=== PATIENT | male | born 1940 | race Caucasian/White ===

== ENCOUNTER 2022-10-16 10:13 | Outpatient (RCR) | payer MEDICARE, OTHER, SELFPAY ==
--- NOTE | 2022-11-06 10:05 | MHC.SP.ADU ---
Referring provider: Dr. 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 Pt reports having a stroke last year. Pt reported he noticed visual deficits in his left eye and that his balance was off. He believed he lost consciousness. Pt was hospitalized 12/05/2021 to 12/10/2021, spending time in the ICU at [facility], for right temporal-occipital intraparenchymal hemorrhage. 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 Pt reports he received speech therapy during his inpatient stay before he was discharged from the hospital to his daughter?s home. He was then seen by 4 therapists for home visits for 3 weeks, and was ?working on walking and speech.? Pt reports he has had no services since this past March. Pt lives alone in a private residence. He has completed high school and ?some college.? Pt is and has three adult daughters. Pt is not currently employed, but does volunteer work 1 day per week for the [employer]. 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 Pt reports onset of cognitive difficulties after his stroke. He believes his thinking has slowed, his organizational skills have worsened, and he is experiencing some memory difficulties. Pt reportedly failed two driving evaluations and his driving license was subsequently revoked. Pt is working with a senior programmer to try to get his license back. Pt reports he has been taking the bus without difficulty. Pt was told he has beginning onset of dementia and was told he could take two medications to slow down its progression. Pt was reportedly cleared by Neurology and told he did not have to return. Pt requested a speech referral to evaluate his concerns surrounding: difficulty finding words, difficulty understanding what others are saying, and mainly concerns pertaining to memory. Medical History: Other: Per chart review, pt?s history includes hypertriglyceridemia, blood glucose abnormal, red blood cell count low, history of polyp of colon, pityriasis lichenoides, essential hypertension, dyslipidemia. Additionally, pt reports history of arthritis, skin cancer, ear infections, and hearing loss. Pt reports he wears hearing aids and glasses, does not use other assistive tools. Patient Orientation: Alert & Oriented x 4 Reported Speech, Language, Cognition difficulties: Memory, Speaking Tests of Speech & Lang Adults: BDAE BNT Clinical Impression: Impaired Observations: Patient completed the [place] Naming Test (BNT) Short Form. He was presented with images, which he was instructed to name in a confrontation naming task. Patient correctly named 11 out of 15 images independently. Patient was able to name common nouns, but exhibited difficulty naming less salient items. Patient displayed some semantic paraphasias (i.e. Labeled ?scope? for target word ?stethoscope?) and phonemic paraphasias (i.e. Labeled ?[place]? for target word ?sphinx?). Patient was not aware of his errors, but did select the correct label in 3 out of 4 trials when provided with a choice of 4 written words. Patient is also observed to compensate for word retrieval difficulty by describing each target item. For example, when patient exhibited difficulty naming an image depicting a tripod, patient stated, ?I know that one?It has three legs and it holds a camera.? Patient presents with a mild anomic aphasia, difficulty retrieving particularly less common words. Pt s observed to utilize compensatory strategies and self-cues to eventually retrieve words on his own. Patient was also administered the Auditory Comprehension, Oral Expression, Reading and Writing subtests of the [place] Diagnostic Aphasia Examination. His performance is summarized below: RECEPTIVE LANGUAGE: -Patient was instructed to identify spoken words by pointing to his response. Patient identified body parts on himself, and line images from an array of 4 correctly in 16 out of 16 trials. Responses after a short time delay (>5 sec) were scored with 1/2 point while immediate responses (<5 sec) were scored with 1 point. Patient received a score of 16/16 on this portion. -Patient followed multistep and complex directions in 3 out of 3 trials. Patient was presented with a verbal direction. Each element of the direction carried out was scored with 1 point. Patient received a score of 10 out of 10 on this task. -Patient correctly answered yes/no questions about ideational material in 4 out of 4 trials and about short stories read aloud for her in 8 out of 8 trials. Questions were presented in pairs (6 pairs), each pair consisting of a yes-item and a no-item. In order to gain 1 point, patient was to answer both questions correctly. Patient received a score of 6/6. EXPRESSIVE LANGUAGE: -Patient generated the days of the week and counted to 21 without difficulty, receiving a score of 4/4. Pt reported no difficulties with automatic speech tasks. -Patient repeated single words in 5 out of 5 trials and complete sentences in 2 out of 2 trials. Pt exhibited no difficulty with repetition. -Patient responded appropriately to responsive naming questions (i.e. ?What do you use to shave??) in 5 out of 5 trials. Items immediately named were scored as 2 points and items named after a short time delay (>5 sec) were scored as 1 point. Patient named 5 items immediately, receiving a score of 10/10. -Patient correctly named ?special categories,? which included letters, numbers, and colors in 12 out of 12 trials. READING: -Patient was able to match letters across cases and scripts, demonstrating basic symbol recognition and receiving a score of 4/4 on this task. -Patient was able to match numbers to fingers and dot patterns, receiving a score of 4/4 on this task. -Patient matched pictures to written words, demonstrating intact word identification. Patient received a score of 4/4 on this task. -Patient read aloud single words without difficulty. Patient read aloud single words within 0-3 seconds, demonstrating basic oral word reading- 15/15 score -Patient read aloud sentences correctly in 5 out of 5 trials. Patient answered comprehension questions correctly after a short time delay- 2/3 correct -Patient read aloud sentences and paragraphs and selected the completion from a choice of 4 without assistance- 4/4 correct WRITING: -Patient was able to print and sign his name -Patient correctly wrote dictated letters and numbers. -Patient was able to write numbers 1-10 -Patient wrote primer words (i.e. cat; run; go; dog), words with regular phonics (i.e. apartment), and common irregular forms (i.e. cough, knife, nation). Patient received a scores of 4/4 when writing primer words, 2/2 when writing words targeting regular phonics, 3/3 when writing common irregular forms. -Well-formedness of letters scored as 14/14. Letters were all well-formed. Correctness of letter choice scored as 21/21. No evident impairments in motor facility of writing, scored as 14/14. Tests of Cognition: RBANS Clinical Impression: Impaired Observations: Additionally, patient?s cognitive linguistic skills were evaluated using the RBANS: The Repeatable Battery for the Assessment of Neuropsychological Status (RBANS-Updated Form A). The RBANS assesses aspects of cognitive memory, language, and attention skills. The RBANS is considered a screening battery for cognitive function used with adolescents and adults, ages 12 to 89 years. Composite domains assessed in this evaluation are: Immediate Memory, Visuospatial/Constructional, Language, Attention, and Delayed Memory. Assessed domains and their scores are summarized below: Immediate Memory: This subtest assesses the patient?s ability to remember a small amount of information immediately after it is presented. Pt was presented with a list of 10 spoken words. Pt initially recalled 1 item from the list of 10. After 3 repetitions, pt recalled up to 4 items on the list. After listening to a spoken paragraph, pt recalled 8 details from the story. Initially patient stated, ?I don?t know.? He was encouraged to state whatever it was that he did remember from the story. Pt explained that this task was difficult for him. Index score: 61 Interpretation: Extremely Low Visuospatial/Constructional: This subtest assesses the patient?s visuospatial skills and perception of spatial relationships. Patient was instructed to draw an accurate copy of a figure presented to him. Pt copied this image with 100% accuracy. Pt?s drawing included all components which were drawn with correct placement. Pt was able to identify lines that matched based on orientation and placement. Visuo-spatial skills are a relative strength for the patient. Index score: 100 Interpretation: Average Language: This subtest assesses the patient?s word retrieval skills. Pt correctly named line images in 10 out of 10 trials. Pt was also instructed to name as many fruits and vegetables as he can in 60 seconds (semantic fluency). Pt named 13 items. Pt?s language skills are a relative strength. Index score: 92 Interpretation: Average Attention: This subtest assesses the patient?s capacity to remember and manipulate both visually and orally presented information in short-term memory storage. Pt was first instructed to repeat back number series that were between 2-9 digits long. Pt recalled digit series of up to 5-7 digits. Pt was able to correctly code markings with numbers. Attention skills are a relative strength for this pt. Index score: 112 Interpretation: High Average Delayed Memory: This subtest assesses the patient?s retrieval of information from long-term memory. Pt exhibited difficulty recalling information that was presented to him at the beginning of the testing period. Pt stated, ?This is what I have trouble with.? Pt did not recall any items on the list presented at the beginning of our session (delayed list recall). Pt was then asked to recognize items by indicating whether or not a given word was on that list. Pt indicated 14/20 words which were on the list, stating, ?I?m guessing now.? Pt recalled 4 details from the story read aloud previously. When asked to redraw the figure drawing which was previously presented to him, pt angel the figure with mostly correct placement and increased missing components. Index score: 68 Interpretation: Extremely Low Sum of Index Scores: 433 [place] Scale Score: 82 Percentile: 12% Vera Altamirano (1998). Repeatable Battery for the Assessment of Neuropsychological Status [Manual]. Clarissa [place]: Luis. Impressions and Recommendations Summary: Impact on Daily Function/Activity Limitations: Daily Activities: Mild Interpersonal Interactions: Mild Education: Employment: Community: Mild Prognosis for Improvement: Good Comment: Pt presents with a mild to moderate cognitive linguistic impairment, with mild anomia and moderate difficulties in short-term memory. Based on pt?s performance on RBANS and BDAE, the following areas of weakness were identified as treatment targets: story memory at the paragraph level, immediate auditory recall (digits, addresses), delayed memory, and word finding. Pt would benefit from outpatient treatment once weekly x 12 sessions to work on the following goals: Recommendation for Speech Therapy: Outpatient Speech Therapy Frequency/Duration: 1x weekly x 12 weeks Date Range for Service Requested: Time to Reassess: 6 months Incident Manager Goals: 1.) Patient will utilize a variety of word-finding strategies at the conversational level with minimal assistance in >80% opportunities presented to him. 2.) Patient will utilize compensatory strategies to assist (immediate and delayed) short-term memory in 80% of opportunities independently. Short Term Goals: Goal # : 1.1.Patient will provide at least 6 members per spoken category in 4 out of 5 trials with minimal assistance. 1.2.Patient will identify a target word when provided with 3-4 related words or phrases in a word deduction task with 80% accuracy and minimal verbal assistance. Goal Status: New Goal Goal# : 1.3.Patient will utilize Semantic Feature cues (i.e. category, use, function, physical components, association, location) to describe items to a listener successfully in 80% of opportunities with visual support (chart). 1.4. Patient will employ circumlocution as a strategy to facilitate word retrieval in conversation in 4 out of 5 opportunities with occasional verbal cues (leading questions, reminders to utilize semantic feature analysis technique). Goal Status: New Goal Goal # : 2.1.Patient will demonstrate increased ability to independently copy relevant details (i.e. character names, time lines, main ideas) with 80% accuracy from a highlighted reading source (i.e. news articles, journal, story) after listening to an oral presentation when provided with minimal verbal reminders. 2.2. Patient will answer auditory comprehension questions about functional paragraphs/narratives with 80% accuracy when provided with minimal cues across three sessions. Goal Status: New Goal Goal # : 2.3. Patient will recall a series of 5-6 digits/words verbally presented to him with 80% accuracy and minimal assistance. 2.4..Patient will recite 4 word lists presented to him verbally in reverse order with 80% accuracy and 1-2 repetitions. 2.5. Patient will recall addresses (including house number, street, city, state) verbally presented to him by the clinician with >80% accuracy and moderate assistance. 2.6. Patient will recognize pictures and words after studying a list of words and illustrations for 20 seconds. He will recognize 80% of targeted pictures/words when provided with minimal cues across three sessions. Goal Status: New Goal Recommended Referrals to be Discussed with Primary Care Provider: Neurology Patient Education: Completed: Yes Patient/Caregiver Education: Described Results of Evaluation Patient expressed understanding of evaluation Comments/Barriers to Learning: Monkey Keeper Clinican/Clinical Fellow: No Supervisory Statement: N/A Speech Language Pathologist: Katie Trujillo M.A., CCC-CHARHOUSE WORKER
== END 2022-11-06 14:13 | disposition still patient (30) ==
LOC: HO.SH 10:13
PROVIDERS: Visit Provider Internal Medicine
DX: I69.30 Unspecified sequelae of cerebral infarction (principal)
CPT/HCPCS: 96125

== ENCOUNTER 2023-11-05 11:00 | Outpatient (RCR) | payer MEDICARE, OTHER, SELFPAY ==
--- NOTE | 2023-06-25 09:51 | MHC.SL.SOA ---
Referring Provider: Dr. 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 Treatment targets story memory at the paragraph level, immediate auditory recall (digits, addresses), delayed memory, and word finding. He has made steady, but notable progress detailed below: Objective: STG 1.1: Patient will provide at least 6 members per spoken category in 4 out of 5 trials with minimal assistance. GOAL MET: Ariel provided at least 6 members per written category in >80% with minimal assistance. STG 1.2: Patient will identify a target word when provided with 3-4 related words or phrases in a word deduction task with 80% accuracy and minimal verbal assistance. IN PROGRESS: Ariel identified a target word when provided with 3-4 related words or phrases in a word deduction task with 70% accuracy and minimal verbal assistance. STG 1.3: Patient will utilize Semantic Feature cues (i.e. category, use, function, physical components, association, location) to describe items to a listener successfully in 80% of opportunities with visual support (chart). GOAL MET: Ariel used SFA cues to describe target words in 100% of trials when provided with verbal prompting and visual support (SFA chart). 1.4. Patient will employ circumlocution as a strategy to facilitate word retrieval in conversation in 4 out of 5 opportunities with occasional verbal cues (leading questions, reminders to utilize semantic feature analysis technique). GOAL NOT YET TARGETED. STG 2.1: Patient will demonstrate increased ability to independently copy relevant details (i.e. character names, time lines, main ideas) with 80% accuracy from a highlighted reading source (i.e. news articles, journal, story) after listening to an oral presentation when provided with minimal verbal reminders. GOAL MET: Al demonstrated increased ability to independently copy relevant details (i.e. character names, time lines, main ideas) with >80% accuracy from a highlighted reading source (i.e. news articles, journal, story) after listening to an oral presentation when provided with minimal verbal reminders. STG 2.2: Patient will answer auditory comprehension questions about functional paragraphs/narratives with 80% accuracy when provided with minimal cues across three sessions. IN PROGRESS: Pt answered comprehension questions about paragraphs which were verbally presented to him with 91% accuracy and moderate assistance. STG 2.3: Patient will recall a series of 5-6 digits/words verbally presented to him with 80% accuracy and minimal assistance. GOAL MET: Ariel recalled a series of 6 words verbally presented to him with >80% accuracy and minimal assistance (1-2 verbal cues). STG 2.4: Patient will recite 4-word lists presented to him verbally in reverse order with 80% accuracy and 1-2 repetitions. IN PROGRESS: Ariel recited 3-WORD lists presented to him verbally in reverse order with 80% accuracy and 1-2 repetitions. STG 2.5: Patient will recall addresses (including house number, street, city, state) verbally presented to him by the clinician with >80% accuracy and moderate assistance. GOAL MET: Ariel recalled addresses (including house number, street, city, state) verbally presented to him by the clinician with >80% accuracy and moderate assistance. STG 2.6. Patient will recognize pictures and words after studying a list of words and illustrations for 20 seconds. He will recognize 80% of targeted pictures/words when provided with minimal cues across three sessions. GOAL NOT YET TARGETED Assessment: Ariel continues to make progress towards his therapy goals. Ariel demonstrates strengths in his categorization skills. Ariel is able to label word lists with a specific and inclusive category, and conversely lists multiple members per spoken category. When using a visual support for semantic feature analysis, he is able to structure his word descriptions to be robust and to include at least 3 semantic features. We want to continue to work on circumlocution at the conversational level as a way for Ariel to self-cue when exhibiting difficulty retrieving words, and also to facilitate listener understanding and prevent communication breakdown. Ariel has been practicing memory strategies, which include chaining words in a list, making associations between words in a list, visualizing items in a grocery list, verbally rehearsing lists to himself, chunking word lists (i.e. milk-cereal?.soda-cups). Using these strategies, Ariel is able to recall 5-6 word lists in most opportunities. Ariel continues to work on delayed recall and mental manipulation tasks. During a memory and mental manipulation task, Al manipulates lists to arrange up to three items in the appropriate order (e.g. Friday, Friday, Friday) after hearing them verbally in a scrambled order (e.g. Friday, Friday, Friday). He only required two repetitions over the course of 10 trials of this task, showing good cognitive function and indicating a need to increase the challenge of this task. Notes: Treatment should continue to target therapy goals with focus on memory exercises related to reading comprehension and immediate and delayed recall. Memory tasks should continue with 5-6 items, which appears to be a good level of challenge for Al. Word finding should continue to be targeted with vocabulary of increased difficulty and concepts relevant/interesting to Al. Because he has met some goals, the following revised goals are recommended: Plan: Goal # : 1.1: Patient will identify a target word when provided with 3-4 related words or phrases in a word deduction task with 80% accuracy and minimal verbal assistance. 1.2: Patient will employ circumlocution as a strategy to facilitate word retrieval in conversation in 4 out of 5 opportunities with occasional verbal cues (leading questions, reminders to utilize semantic feature analysis technique). Status of Goal: Goal Continued Goal # : 2.1: Patient will answer auditory comprehension questions about functional paragraphs/narratives with 80% accuracy when provided with minimal cues across three sessions. Status of Goal: Goal Continued Goal # : 2.2: Patient will INDEPENDENTLY recall a series of 5-6 digits/words verbally presented to him with 80% accuracy. 2.3: Patient will recite 4-word lists presented to him verbally in reverse order with 80% accuracy and 1-2 repetitions. 2.4: Patient will INDEPENDENTLY recall addresses (including house number, street, city, state) verbally presented to him by the clinician with >80%. 2.5: Patient will recognize pictures and words after studying a list of words and illustrations for 20 seconds. He will recognize 80% of targeted pictures/words when provided with minimal cues across three sessions. Status of Goal: Revised Goal Goal # : 2.6: Patient will recall 3 compensatory strategies for short-term memory (i.e. memory book, calendar, mental rehearsal, repetition, visualization) in 4 out of 5 opportunities when provided with minimal verbal prompting across 3 sessions. Status of Goal: New Goal Seen by: Graduate/Clinical Fellow: No Supervisory Statement: f_Reg Query Last Value , [facility] Speech Language Pathologist: Katie Trujillo M.A., CCC-MOBILE SECURITY ARCHITECT
--- NOTE | 2023-09-24 16:42 | MHC.SL.SOA ---
Referring Provider: Dr. 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 Treatment targets story memory at the paragraph level, immediate auditory recall (digits, addresses), delayed memory, and word finding. He has made steady, but notable progress detailed below: Objective: 1.1: Patient will identify a target word when provided with 3-4 related words or phrases in a word deduction task with 80% accuracy and minimal verbal assistance. GOAL MET: Patient identifies a target word when provided with 3-4 related words or phrases in >80% of trials when provided with minimal verbal cues. Patient performs relatively well on confrontational naming and responsive naming tasks. Patient exhibits occasional anomia in conversation, for which he compensates by describing words, spelling, and gesturing. When not able to recall words based on the clinician's descriptions, he benefits from additional phonemic or orthographic cues (i.e. You sweep with a br... or It starts with the letter B for target word broom ) 1.2: Patient will employ circumlocution as a strategy to facilitate word retrieval in conversation in 4 out of 5 opportunities with occasional verbal cues (leading questions, reminders to utilize semantic feature analysis technique). GOAL MET: Patient employs circumlocution as a strategy to facilitate word retrieval during structured conversation in >80% of opportunities when provided with occasional verbal cues. When unable to immediately recall a word, Ariel expresses frustration, stating, I know the word and I just can't. When verbally reminded, though, Ariel is able to describe the word as a way of self-cuing and maintaining the conversation flow. Upon further discussing its meaning, Ariel often recalls words after a short time delay. 2.1: Patient will answer auditory comprehension questions about functional paragraphs/narratives with 80% accuracy when provided with minimal cues across three sessions. IN PROGRESS: Patient answered auditory comprehension questions about paragraph level text with 90% accuracy when reading the text to himself and with 70% accuracy when information was presented to him by the clinician verbally. Ariel was provided with minimal to moderate verbal assistance, consisting of repetition, summarization of each paragraph, highlighting of gonsalez details, and forced choice responses. 2.2: Patient will INDEPENDENTLY recall a series of 5-6 digits/words verbally presented to him with 80% accuracy. With moderate assistance, patient recalled 5-word grocery lists with 70% accuracy. He independently recalled 3-4 items from each 5 word list. Ariel' performance on this task improved when he employed strategies of verbal rehearsal, visualization, and counting. Ariel was provided with moderate support in order to employ these memory strategies. 2.3: Patient will organize 5-6-word lists presented to him verbally to form appropriate, logical sentences with 80% accuracy and minimal assistance (1-2 verbal prompts). GOAL NOT YET TARGETED DUE TO TIME CONSTRAINTS. 2.4: Patient will INDEPENDENTLY recall addresses (including house number, street, city, state) verbally presented to him by the clinician with >80%. IN PROGRESS: Patient recalled partial addresses (i.e. house number and street name) verbally presented to him with 78% accuracy and minimal cues. Each address was repeated for Ariel 2-3 times, which improved his recall accuracy. Ariel was also instructed to practice verbal rehearsal. Ariel shared that he often repeats things to [himself] several times to help him remember. 2.5: Patient will recognize pictures and words after studying a list of words and illustrations for 20 seconds. He will recognize 80% of targeted pictures/words when provided with minimal cues across three sessions. IN PROGRESS: Patient recalled pictures and words after several minutes with 67% accuracy when provided with minimal cues. Ariel exhibits difficulty recalling information after a delay. Independently he is able to recall most items from each list. He was able to identify the remaining items from a field of 4 other items when provided with additional verbal cues ( The next item on the list was a type of vegetable ). 2.6: Patient will recall 3 compensatory strategies for short-term memory (i.e. memory book, calendar, mental rehearsal, repetition, visualization) in 4 out of 5 opportunities when provided with minimal verbal prompting across 3 sessions. GOAL NOT YET TARGETED DUE TO TIME CONSTRAINTS. 2.7: Patient will a.) identify the illogical part of a sentence presented verbally and b.) correct the sentence to make it logical with 80% accuracy and minimal assistance (1-2 verbal prompts). GOAL NOT YET TARGETED DUE TO TIME CONSTRAINTS. Assessment: Ariel continues to make progress towards his therapy goals. Ariel demonstrates relative strengths in his word retrieval and categorization skills. Ariel is able to label word lists with a specific and inclusive category, and conversely lists multiple members per spoken category. When using a visual support for semantic feature analysis, he is able to structure his word descriptions to be robust and to include at least 3 semantic features. Ariel is observed to employ this strategy of circumlocution at the conversational level as well as a way to self-cue when exhibiting difficulty retrieving words, and also to facilitate listener understanding and prevent communication breakdown. Ariel has been practicing memory strategies, which include chaining words in a list, making associations between words in a list, visualizing items in a grocery list, verbally rehearsing lists to himself, chunking word lists (i.e. milk-cereal?.soda-cups). Using these strategies, Ariel is able to immediately recall 5-6 word at a time in most opportunities. Ariel continues to work on delayed recall, as this is an area of challenge for him. Notes: Recommend 12 additional weekly visits for speech therapy. Treatment to focus on memory exercises related to reading comprehension and immediate and delayed recall. The following goals are recommended. Plan: Goal # : 1.1: Patient will identify a target word when provided with 3-4 related words or phrases in a word deduction task with 80% accuracy and minimal verbal assistance. 1.2: Patient will employ circumlocution as a strategy to facilitate word retrieval in conversation in 4 out of 5 opportunities with occasional verbal cues (leading questions, reminders to utilize semantic feature analysis technique). Status of Goal: Discharge Goal Goal # : 2.1: Patient will answer auditory comprehension questions about functional paragraphs/narratives with 80% accuracy when provided with minimal cues across three sessions. Status of Goal: Goal Continued Goal # : 2.2: Patient will INDEPENDENTLY recall a series of 5-6 digits/words verbally presented to him with 80% accuracy. 2.3: Patient will organize 5-6-word lists presented to him verbally to form appropriate, logical sentences with 80% accuracy and minimal assistance (1-2 verbal prompts). 2.4: Patient will INDEPENDENTLY recall addresses (including house number, street, city, state) verbally presented to him by the clinician with >80%. 2.5: Patient will recognize pictures and words after studying a list of words and illustrations for 20 seconds. He will recognize 80% of targeted pictures/words when provided with minimal cues across three sessions. Status of Goal: Goal Continued Goal # : 2.6: Patient will recall 3 compensatory strategies for short-term memory (i.e. memory book, calendar, mental rehearsal, repetition, visualization) in 4 out of 5 opportunities when provided with minimal verbal prompting across 3 sessions. 2.7: Patient will a.) identify the illogical part of a sentence presented verbally and b.) correct the sentence to make it logical with 80% accuracy and minimal assistance (1-2 verbal prompts). Status of Goal: Goal Continued Seen by: Graduate/Clinical Fellow: No Supervisory Statement: f_Reg Query Last Value , [facility] Speech Language Pathologist: Katie Trujillo M.A., CCC-[employer]
--- NOTE | 2023-11-05 12:13 | MHC.SL.SOA ---
Referring Provider: Dr. 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 He expressed gratitude, stating, You've helped me so much. I feel like I've gotten better and now I know what to do to help me remember. Objective: 1.1: Patient will identify a target word when provided with 3-4 related words or phrases in a word deduction task with 80% accuracy and minimal verbal assistance GOAL MET: Patient identifies target words when provided with 3-4 related words in a word deduction task with >90% accuracy and minimal verbal cues. 1.2: Patient will employ circumlocution as a strategy to facilitate word retrieval in conversation in 4 out of 5 opportunities with occasional verbal cues (leading questions, reminders to utilize semantic feature analysis technique) GOAL MET: Patient employs circumlocution during structured conversation in >80% of opportunities when provided with minimal verbal cues. 2.1: Patient will answer auditory comprehension questions about functional paragraphs/narratives with 80% accuracy when provided with minimal cues across three sessions GOAL MET: Patient answered comprehension questions about verbally presented paragraphs with 80% accuracy and minimal verbal cues. 2.2: Patient will INDEPENDENTLY recall a series of 5-6 digits/words verbally presented to him with 80% accuracy. GOAL DISCHARGED: Patient recalls 5-word lists verbally presented to him with 80% accuracy when provided with moderate assistance. 2.3: Patient will organize 5-6-word lists presented to him verbally to form appropriate, logical sentences with 80% accuracy and minimal assistance (1-2 verbal prompts) GOAL MET: Patient unscrambled sentences with >80% accuracy when provided with minimal verbal cues. 2.4: Patient will INDEPENDENTLY recall addresses (including house number, street, city, state) verbally presented to him by the clinician with >80%. GOAL DISCHARGED: Patient recalled addresses verbally presented to him with 80% accuracy when provided with moderate verbal cues. 2.5: Patient will recognize pictures and words after studying a list of words and illustrations for 20 seconds. He will recognize 80% of targeted pictures/words when provided with minimal cues across three sessions. GOAL DISCHARGED: Patient recognizes pictures and words when provided with maximal assistance. 2.6: Patient will recall 3 compensatory strategies for short-term memory (i.e. memory book, calendar, mental rehearsal, repetition, visualization) in 4 out of 5 opportunities when provided with minimal verbal prompting across 3 sessions. GOAL MET: Patient recalled 3 compensatory strategies for short-term recall (i.e. note writing, keeping a calendar, repeating to oneself, associations). 2.7: Patient will a.) identify the illogical part of a sentence presented verbally and b.) correct the sentence to make it logical with 80% accuracy and minimal assistance (1-2 verbal prompts) GOAL MET: Patient identified the illogical part of a sentence verbally presented to him and corrected each sentence with >90% accuracy and faded cues. Assessment: Ariel has attended weekly speech therapy visits since November 2022 with excellent attendance and compliance to home practice. He has made notable progress throughout his course of treatment. Ariel is able to compensate for occasional word finding difficulty by using gestures and providing listeners with descriptions to continue the conversation flow and prevent or repair communication breakdown. By doing this, he is often able to also recall the word on his own. He also uses compensatory strategies to facilitate short term recall, particularly practicing verbal rehearsal, chunking, and association. Ariel is able to describe each of these strategies and apply them in order to recall information that is presented to him verbally or in written form. Ariel continues to experience difficulty with delayed recall. We have discussed some external strategies, such as note taking and using a memory book or calendar. Ariel shared that after writing things down, he is often able to recall information better than if [he] were to just listen to it. Ariel is actively engaged in the community by volunteering at a museum, independently traveling by bus or train, and regularly meeting with friends. He is encouraged to continue this type of social interaction and engagement. Notes: Ariel is discharged from outpatient speech therapy at this time. He was provided with a packet of worksheets and activity ideas to maintain the progress he has made in treatment. It has been an absolute pleasure working with Ariel. Plan: Goal # : 1.1: Patient will identify a target word when provided with 3-4 related words or phrases in a word deduction task with 80% accuracy and minimal verbal assistance: GOAL MET 1.2: Patient will employ circumlocution as a strategy to facilitate word retrieval in conversation in 4 out of 5 opportunities with occasional verbal cues (leading questions, reminders to utilize semantic feature analysis technique): GOAL MET Status of Goal: Goal Met Goal # : 2.1: Patient will answer auditory comprehension questions about functional paragraphs/narratives with 80% accuracy when provided with minimal cues across three sessions: GOAL MET Status of Goal: Goal Met Goal # : 2.2: Patient will INDEPENDENTLY recall a series of 5-6 digits/words verbally presented to him with 80% accuracy. 2.3: Patient will organize 5-6-word lists presented to him verbally to form appropriate, logical sentences with 80% accuracy and minimal assistance (1-2 verbal prompts): GOAL MET 2.4: Patient will INDEPENDENTLY recall addresses (including house number, street, city, state) verbally presented to him by the clinician with >80%. 2.5: Patient will recognize pictures and words after studying a list of words and illustrations for 20 seconds. He will recognize 80% of targeted pictures/words when provided with minimal cues across three sessions. Status of Goal: Discharge Goal Goal # : 2.6: Patient will recall 3 compensatory strategies for short-term memory (i.e. memory book, calendar, mental rehearsal, repetition, visualization) in 4 out of 5 opportunities when provided with minimal verbal prompting across 3 sessions: GOAL MET 2.7: Patient will a.) identify the illogical part of a sentence presented verbally and b.) correct the sentence to make it logical with 80% accuracy and minimal assistance (1-2 verbal prompts): GOAL MET Status of Goal: Goal Met Seen by: Graduate/Clinical Fellow: No Supervisory Statement: f_Reg Query Last Value , MHC.AU.SIGNATUR Speech Language Pathologist: Katie Trujillo M.A., [facility]-ARCHITECTURE MANAGER
== END 2023-11-06 13:57 | disposition home or self-care (01) ==
LOC: HO.SH 11:00
PROVIDERS: PCP Internal Medicine; Visit Provider Internal Medicine
DX: I69.30 Unspecified sequelae of cerebral infarction (principal)
CPT/HCPCS: 92507